=== PATIENT | male | born 1950 | race Caucasian/White ===

== ENCOUNTER 2018-02-21 10:45 | Outpatient (CLI) | payer MEDICARE, MEDICAID ==
[~2018-02-21 10:45] MED LIST: CLOP75TA35 PO; FENO145T38 PO; NOR5T PO; ZET10T PO; [UNRECOGNIZED DRUG - CODE] PO
== END 2018-02-21 23:59 | disposition home or self-care (01) ==
LOC: VAS 10:45
PROVIDERS: ATTEND Family Medicine
DX: R60.0 Localized edema (principal); M79.604 Pain in right leg; I10 Essential (primary) hypertension; Z87.891 Personal history of nicotine dependence
CPT/HCPCS: 93971

== ENCOUNTER 2019-10-18 14:12 | Inpatient (IN) | payer MEDICARE, OTHER ==
[~2019-10-18] VITALS: Ht 182.9 cm; Wt 118.2 kg
--- NOTE | 2019-10-18 14:40 | NUR ---
pt in ct. labs collected. line started. accucheck completed. ekg completed.
[2019-10-18 14:49] LABS: BASOPHILS % (AUTO) 0.6 % (0-1); EOSINOPHILS # (AUTO) 0.1 X10'3 (0-0.9); EOSINOPHILS % (AUTO) 1.9 % (0-6); HEMATOCRIT 45.1 % (42.0-52.0); HEMOGLOBIN 15.8 g/dl (14.0-17.9); LYMPHOCYTES # (AUTO) 2.4 X10'3 (1.1-4.8); MEAN CORPUSCULAR HEMOGLOBIN 30.4 PG (27.0-31.0); MEAN CORPUSCULAR HGB CONC 35.1 g/dL (33.0-36.5); MEAN CORPUSCULAR VOLUME 86.4 FL (78-98); MEAN PLATELET VOLUME 8.3 FL (7.4-10.4); MONOCYTES # (AUTO) 0.5 X10'3 (0-0.9); MONOCYTES % (AUTO) 7.9 % (2-12); NEUTROPHILS # (AUTO) 3.3 X10'3 (1.8-7.7); NEUTROPHILS % (AUTO) 51.6 % (42-75); PLATELET COUNT 208 X10'3 (140-440); RED BLOOD COUNT 5.21 X10'6 (4.70-6.10); RED CELL DISTRIBUTION WIDTH 13.2 % (11.5-14.5); WHITE BLOOD COUNT 6.3 X10'3 (4.5-11.0)
[2019-10-18] MEDS ORDERED: proCHLORperazine 10 MG/2 ml inj IV ONE (15:00)
[2019-10-18 15:05] LABS: PARTIAL THROMBOPLASTIN TIME 24 SECONDS (22-32)
[2019-10-18 15:07] LABS: ALANINE AMINOTRANSFERASE 80 U/L (12-78); ALBUMIN/GLOBULIN RATIO 1.2 (1.1-1.5); ALKALINE PHOSPHATASE 71 IU/L (46-116); ANION GAP 11 (8-16); ASPARTATE AMINO TRANSFERASE 34 U/L (10-37); BILIRUBIN,TOTAL 0.8 MG/DL (0.1-1.0); BLOOD UREA NITROGEN 19 MG/DL (7-18); BUN/CREATININE RATIO 18.4 (5.4-32.0); CALCIUM 8.9 MG/DL (8.5-10.1); CHLORIDE 106 MMOL/L (99-107); CREATININE 1.03 MG/DL (0.60-1.10); GLUCOSE 164 MG/DL (70-104); POTASSIUM 3.5 MMOL/L (3.5-5.1); SODIUM 142 MMOL/L (135-145); TOTAL CARBON DIOXIDE 25.4 MMOL/L (24-32); TOTAL PROTEIN 7.4 G/DL (6.4-8.2); eGFR 71 ML/MIN
[2019-10-18 15:11] LABS: TROPONIN I < 0.04 NG/ML (0.0-0.05)
[2019-10-18] MEDS ORDERED: potassium Cl 20 mEq SR tablet PO STA (15:27)
[2019-10-18] MEDS ORDERED: LISI40TA4 PO (16:30)
[2019-10-18] MEDS ORDERED: METO100T7 PO (16:30)
[2019-10-18] MEDS ORDERED: CLOP75TA15 PO (16:30)
[2019-10-18] MEDS ORDERED: HYDR12.55 PO (16:30)
[2019-10-18] MEDS ORDERED: AMLO5TAB16 PO (16:30)
[2019-10-18] MEDS ORDERED: iohexol 350MG/ML 100ml bottle IV ONE (16:44)
[2019-10-18] MEDS ORDERED: HYDROcodone/acetaminophen 5mg/325mg tablet PO PRN (17:55)
[2019-10-18] MEDS ORDERED: HYDROcodone/acetaminophen 10/325mg tab PO PRN (17:55)
[2019-10-18] MEDS ORDERED: diphenhydrAMINE 25mg capsule PO PRN (17:55)
[2019-10-18] MEDS ORDERED: atorvastatin 10mg tablet PO SCH (17:55)
[2019-10-18] MEDS ORDERED: potassium CL 10mEq/100ml bag 100 ML IV PRN ×2 (17:55)
[2019-10-18] MEDS ORDERED: acetaminophen 325mg tablet PO PRN ×2 (17:55)
[2019-10-18] MEDS ORDERED: magnesium Cl slow-release 64mg tablet PO PRN (17:55)
[2019-10-18] MEDS ORDERED: morphine 2 MG/ML inj. syringe IV PRN ×2 (17:55)
[2019-10-18] MEDS ORDERED: magnesium hydroxide 30ml (MOM) UD suspension PO PRN (17:55)
[2019-10-18] MEDS ORDERED: ondansetron/PF 4mg/2ml inj IV PRN (17:55)
[2019-10-18] MEDS ORDERED: potassium Cl 20 mEq SR tablet PO PRN ×2 (17:55)
[2019-10-18] MEDS ORDERED: bisacodyl 10mg suppository rectal RC PRN (17:55)
[2019-10-18] MEDS ORDERED: acetaminophen 650mg rectal suppository RC PRN (17:55)
[2019-10-18] MEDS ORDERED: mag hydrox/Alum hydrox/simeth 30ml oral suspension PO PRN (17:55)
[2019-10-18] MEDS ORDERED: magnesium 4gm in 100ml NS 100 ML IV PRN (17:55)
[2019-10-18] MEDS ORDERED: magnesium 2GM in 50ml NS 50 ML IV PRN (17:55)
[2019-10-18 18:26] LABS: CHOL/HDL RATIO 6.3 (0.00-4.99); CHOLESTEROL 228 MG/DL (0-200); HDL CHOLESTEROL 36 MG/DL (35-60); LDL CHOLESTEROL 158 MG/DL (50-100); TRIGLYCERIDES 278 MG/DL (20-135)
[2019-10-18 18:30] LABS: HEMOGLOBIN A1C 7.8 % (4.5-6.2)
[2019-10-18] MEDS ORDERED: hydrALAZINE 20mg/ml inj. IV ONE (18:55)
--- NOTE | 2019-10-18 18:58 | NUR ---
HOSPITALIST JASON IN ROOM TALKING WITH PT. JASON GAVE VERBAL ORDER FOR HYDRALAZINE 20MG IV X1 DOSE NOW FOR PT BLOOD PRESSURE 182/96 AND TO HOLD THE ORDERED ATORVASTATIN PT REPORTS EXTREME MUSCLE ACHES WITH THIS MEDICAIOTN. ORDERS PLACED REQUESTED PER .
--- NOTE | 2019-10-18 19:25 | NUR ---
Patient in room ORTHO 4021. I have received report from Maria Eugenia PINZON and had the opportunity to ask questions and assume patient care.
[2019-10-18 19:30] VITALS: BP 162/88
--- NOTE | 2019-10-18 19:47 | NUR ---
paged for order for CPAP. patient would like to use facility CPAP. MD stated that he would put in the order.
--- NOTE | 2019-10-18 19:54 | NUR ---
paged RT to request set up of cpap machine.
[2019-10-18 20:00] VITALS: BP_SYST 146; BP_SYST 165; BP_SYST 168; BP_DIAS 69; BP_DIAS 95; BP_DIAS 99
[2019-10-18] MEDS: K and/or MAG REPLACEMENT MC SCH (20:00)
[2019-10-18] MEDS: heparin, porcine 5000 units/ml vial SQ SCH (20:00)
[2019-10-18] MEDS: amLODIPine 5mg tablet PO SCH (20:56)
[2019-10-18] MEDS: normal saline 1000ml 1,000 ML IV SCH (20:58)
[2019-10-18] MEDS ORDERED: metoprolol succinate 25mg (24-HOUR) SR. Tablet PO SCH (21:00)
[2019-10-18 21:07] LABS: CLARITY,URINE CLEAR (Clear); COLOR,URINE YELLOW (Yellow); GLUCOSE, URINE 100 mg/dl (Neg); KETONES,URINE 15 mg/dl (Neg); LEUKOCYTE ESTERASE ,URINE NEGATIVE (Neg); NITRITES, URINE NEGATIVE (Neg); OCCULT BLOOD,URINE NEGATIVE (Neg); PROTEIN,URINE NEGATIVE (Neg); UROBILINOGEN,URINE 0.2 E.U/dL (0.2-1.0)
[2019-10-18 21:08] LABS: UA COLLECTION TYPE VOIDED
[2019-10-18 22:00] VITALS: BP 146/69
[2019-10-19 02:00] VITALS: BP 141/78
[2019-10-19 06:14] LABS: BASOPHILS % (AUTO) 0.4 % (0-1); EOSINOPHILS # (AUTO) 0.2 X10'3 (0-0.9); EOSINOPHILS % (AUTO) 2.7 % (0-6); HEMATOCRIT 41.1 % (42.0-52.0); HEMOGLOBIN 14.5 g/dl (14.0-17.9); LYMPHOCYTES # (AUTO) 2.9 X10'3 (1.1-4.8); LYMPHOCYTES % (AUTO) 46.4 % (21-51); MEAN CORPUSCULAR HEMOGLOBIN 30.5 PG (27.0-31.0); MEAN CORPUSCULAR HGB CONC 35.2 g/dL (33.0-36.5); MEAN CORPUSCULAR VOLUME 86.6 FL (78-98); MEAN PLATELET VOLUME 8.4 FL (7.4-10.4); MONOCYTES # (AUTO) 0.5 X10'3 (0-0.9); MONOCYTES % (AUTO) 8.4 % (2-12); NEUTROPHILS # (AUTO) 2.6 X10'3 (1.8-7.7); NEUTROPHILS % (AUTO) 42.1 % (42-75); PLATELET COUNT 182 X10'3 (140-440); RED BLOOD COUNT 4.74 X10'6 (4.70-6.10); WHITE BLOOD COUNT 6.2 X10'3 (4.5-11.0)
--- NOTE | 2019-10-19 06:18 | NUR ---
Problems reprioritized. Patient report given, questions answered & plan of care reviewed with Esther PINZON.
--- NOTE | 2019-10-19 06:20 | NUR ---
Patient in room ORTHO 4021. I have received report from Chioma and had the opportunity to ask questions and assume patient care.
[2019-10-19 06:41] LABS: ALANINE AMINOTRANSFERASE 63 U/L (12-78); ALBUMIN 3.4 G/DL (3.4-5.0); ALBUMIN/GLOBULIN RATIO 1.1 (1.1-1.5); ALKALINE PHOSPHATASE 53 IU/L (46-116); ANION GAP 10 (8-16); ASPARTATE AMINO TRANSFERASE 24 U/L (10-37); BILIRUBIN,TOTAL 0.8 MG/DL (0.1-1.0); BLOOD UREA NITROGEN 16 MG/DL (7-18); BUN/CREATININE RATIO 19.5 (5.4-32.0); CALCIUM 8.2 MG/DL (8.5-10.1); CHLORIDE 109 MMOL/L (99-107); CHOL/HDL RATIO 6.1 (0.00-4.99); CHOLESTEROL 200 MG/DL (0-200); CREATININE 0.82 MG/DL (0.60-1.10); GLUCOSE 183 MG/DL (70-104); HDL CHOLESTEROL 33 MG/DL (35-60); LDL CHOLESTEROL 142 MG/DL (50-100); MAGNESIUM 1.9 MG/DL (1.5-2.4); PHOSPHORUS 2.9 MG/DL (2.3-4.5); POTASSIUM 3.1 MMOL/L (3.5-5.1); SODIUM 143 MMOL/L (135-145); TOTAL CARBON DIOXIDE 24.4 MMOL/L (24-32); TOTAL PROTEIN 6.4 G/DL (6.4-8.2); TRIGLYCERIDES 133 MG/DL (20-135); eGFR > 90 ML/MIN
[2019-10-19] MEDS: normal saline 1000ml 1,000 ML IV SCH ×2 (06:44→13:54)
--- NOTE | 2019-10-19 07:21 | NUR ---
PAGER ID: [phone] MESSAGE: Good morning, Esther on ortho, Mr. Mckinney in 05[address] is requesting anti-anxiety med prior to MRI, please advise, thank you
[2019-10-19] MEDS ORDERED: LORazepam 1 MG tablet PO ONE (07:50)
[2019-10-19 08:00] VITALS: BP_SYST 136; BP_SYST 157; BP_SYST 158; BP_SYST 167; BP_DIAS 77; BP_DIAS 85; BP_DIAS 87; BP_DIAS 88
[2019-10-19] MEDS ORDERED: HYDROchlorothiazide 12.5mg capsule PO SCH (08:00)
[2019-10-19] MEDS ORDERED: clopidogrel 75mg tablet PO SCH (08:00)
[2019-10-19] MEDS ORDERED: aspirin 81mg tablet.DR PO SCH (08:00)
[2019-10-19] MEDS ORDERED: lisinopril 20mg tablet PO SCH (08:00)
[2019-10-19] MEDS: K and/or MAG REPLACEMENT MC SCH (08:00)
[2019-10-19] MEDS: heparin, porcine 5000 units/ml vial SQ SCH (09:02)
--- NOTE | 2019-10-19 10:03 | NUR ---
PAGER ID: [phone] MESSAGE: Good morning, Esther on ortho, Mr. Mckinney in 4021 A, BP has been 157 systolic, HR 66, hold or give the BP meds? Please advise, thank you
[2019-10-19] MEDS ORDERED: MESSAGE TO PHARMACY PO ONE (10:05)
[2019-10-19] MEDS ORDERED: glucagon, human recombinant 1mg kit SUBCUT PRN (10:05)
[2019-10-19] MEDS ORDERED: insulin Lispro (HumaLOG) vial - multi-dose SQ SCH (10:05)
[2019-10-19] MEDS ORDERED: dextrose ORAL solution 15 GM/59 ML bottle PO PRN ×2 (10:05)
[2019-10-19] MEDS ORDERED: dextrose 50%-water 50ml dispensing syringe IV PRN ×2 (10:05)
[2019-10-19] MEDS: amLODIPine 5mg tablet PO SCH (10:10)
[2019-10-19 12:00] VITALS: BP 167/88
[2019-10-19] MEDS ORDERED: METF-950 PO (14:09)
--- NOTE | 2019-10-19 14:50 | NUR ---
Reviewed discharge instructions with pt. Pt verbalized understanding. Pt is alert, oriented and ready to discharge. All of pt's belongings were returned to pt. Pt was walked downstairs where his spouse was waiting to take him home.
--- NOTE | 2019-10-19 15:15 | NUR ---
DM consult: Pt with A1c 7.8%, discharged prior to RD being available for bedside visit. Written DM education and RD contact information mailed to patient's address found in EMR. Will remain available. Addendum: 10/19/19 at [address] Amended: Links added.
[2019-10-19] MEDS ORDERED: insulin glargine (Lantus) pen - multi-dose SQ SCH (21:00)
--- NOTE | 2019-10-20 10:48 | NUR ---
Case management DC follow up: LM/VM re post DC status, stroke-like symptoms, questions, concerns
== END 2019-10-19 14:50 | disposition home or self-care (01) | DRG 103 ==
LOC: ER 14:13 → ED HOLD 17:54 → ORTHO 4S 19:20
PROVIDERS: ADMIT Family Medicine; ATTEND Family Medicine
PROC: 5A09357 Assistance with Respiratory Ventilation, Less than 24 Consecutive Hours, Continuous Positive Airway Pressure (ICD-10-PCS; principal; 2019-10-18)
PROC: B3251ZZ Computerized Tomography (CT Scan) of Bilateral Common Carotid Arteries using Low Osmolar Contrast (ICD-10-PCS; 2019-10-18)
PROC: B32G1ZZ Computerized Tomography (CT Scan) of Bilateral Vertebral Arteries using Low Osmolar Contrast (ICD-10-PCS; 2019-10-18)
PROC: B3281ZZ Computerized Tomography (CT Scan) of Bilateral Internal Carotid Arteries using Low Osmolar Contrast (ICD-10-PCS; 2019-10-18)
PROC: 5A09357 Assistance with Respiratory Ventilation, Less than 24 Consecutive Hours, Continuous Positive Airway Pressure (ICD-10-PCS; 2019-10-19)
DX: G43.909 Migraine, unspecified, not intractable, without status migrainosus (principal); I69.354 Hemiplegia and hemiparesis following cerebral infarction affecting left non-dominant side; E11.9 Type 2 diabetes mellitus without complications; E78.00 Pure hypercholesterolemia, unspecified; I11.9 Hypertensive heart disease without heart failure; I25.10 Atherosclerotic heart disease of native coronary artery without angina pectoris; Z79.02 Long term (current) use of antithrombotics/antiplatelets; Z79.899 Other long term (current) drug therapy; Z87.891 Personal history of nicotine dependence; Z95.5 Presence of coronary angioplasty implant and graft
CPT/HCPCS: 36415; 70450; 70496; 70498; 70544; 70551; 71045; 80053; 80061; 81003; 82948; 83036; 83735; 84100; 84484; 85025; 85610; 85651; 85730; 87081; 93005; 93306; 93880; 94660; 94760; 99285; G0378; J1644; J1815; J7030; Q9967